=== PATIENT | female | born 1965 | race African-American/Black ===

== ENCOUNTER 2017-05-12 17:51 | Inpatient (IN) | payer MEDICAID, MEDICARE ==
[~2017-05-12] VITALS: Ht 165.1 cm; Wt 135.8 kg
[2017-05-12] MEDS ORDERED: LABE200T PO (19:01)
[2017-05-12] MEDS ORDERED: ASPI81TA31 PO (19:01)
[2017-05-12] MEDS ORDERED: ATOR40TA PO (19:01)
[2017-05-12] MEDS ORDERED: LISI-607 PO (19:01)
[2017-05-12] MEDS ORDERED: MOME13HF2 INH (19:01)
[2017-05-12] MEDS ORDERED: NICOTINE (19:01)
[2017-05-12] MEDS ORDERED: METH500T PO (19:01)
[2017-05-12] MEDS ORDERED: CLON0.2T PO (19:01)
[2017-05-12] MEDS ORDERED: ERGO500014 PO (19:01)
[2017-05-12] MEDS ORDERED: FURO40TA5 PO (19:01)
[2017-05-12] MEDS ORDERED: AMLO10TA2 PO (19:01)
--- NOTE | 2017-05-12 20:21 | NUR ---
AT BEDSIDE FOR MSE.
[2017-05-12 21:00] LABS: *BILIRUBIN,URIN NEGATIVE (NEGATIVE); *BLOOD, URINE 2+ (NEGATIVE); *CLARITY,URINE CLEAR (CLEAR); *COLOR,URINE YELLOW (YELLOW); *KETONES,URINE TRACE (NEGATIVE); *UROBILINOGEN,URINE 0.2 E.U./dl (NORMAL); LEUKOCYTE ESTERASE ,URINE NEGATIVE (NEGATIVE); NITRITE, URINE NEGATIVE (NEGATIVE); PH,URINE 5.5 (5.0-8.0); UGLUCOSE NEGATIVE (NEGATIVE)
[2017-05-12 21:03] LABS: *PROTEIN,URINE 3+ (NEGATIVE)
[2017-05-12 21:04] LABS: BASOPHILS # (AUTO) 0.4 K/uL (0.0-8.0); BASOPHILS % (AUTO) 3.6 % (0.0-2.0); EOSINOPHILS # (AUTO) 0.3 K/uL (0.0-0.7); EOSINOPHILS % (AUTO) 2.7 % (0.0-7.0); HEMATOCRIT 36.5 % (37-47); HEMOGLOBIN 12.3 G/DL (12.0-16.0); LYMPHOCYTES # (AUTO) 2.7 K/UL (0.8-4.8); LYMPHOCYTES % (AUTO) 23.8 % (20.5-51.5); MEAN CORPUSCULAR HEMOGLOBIN 30.1 UUG (27.0-31.0); MEAN CORPUSCULAR HGB CONC 34 g/dL (32.0-37.0); MEAN CORPUSCULAR VOLUME 89.6 FL (81.0-99.0); MONOCYTES # (AUTO) 0.8 K/UL (0.1-1.30); MONOCYTES % (AUTO) 6.7 % (0.0-11.0); NEUTROPHILS # (AUTO) 7.2 K/UL (1.8-8.9); NEUTROPHILS % (AUTO) 63.2 % (38.5-71.5); PLATELET COUNT (AUTO) 199 K/UL (150-450); RED BLOOD CELL COUNT(AUTO) 4.08 MIL/UL (4.2-5.4); WHITE BLOOD COUNT (AUTO) 11.4 K/UL (4.0-11.2)
[2017-05-12 21:06] LABS: BACTERIA,URINE MODERATE /HPF (NONE SEEN); SQUAMOUS EPITHELIAL CELL,UR MANY /HPF (NONE SEEN)
[2017-05-12 21:08] LABS: CARBON DIOXIDE 28 mmol/L (21-32); CHLORIDE 102 mmol/L (98-107); CREATININE 4.3 mg/dL (0.6-1.3); GLUCOSE 173 mg/dL (74-106); POTASSIUM 3.5 mmol/L (3.5-5.1); UREA NITROGEN, BLOOD 48 mg/dL (7-18)
[2017-05-12 21:15] LABS: ALANINE AMINOTRANSFERASE 24 U/L (14-59); ALKALINE PHOSPHATASE 151 U/L (50-136); ASPARTATE AMINOTRANSFERASE 14 U/L (15-37); BILIRUBIN,DIRECT < 0.1 mg/dL (0.0-0.2); BILIRUBIN,TOTAL 0.9 mg/dL (0.2-1.0); LIPASE 100 U/L (73-393); TOTAL PROTEIN, SERUM 7.7 g/dL (6.4-8.2)
--- NOTE | 2017-05-12 21:56 | NUR ---
[facility] CALLED AT THIS TIME.
[2017-05-12] MEDS ORDERED: ONDANSETRON 4 MG/2 ML VIAL IV PRN (23:15)
[2017-05-12] MEDS ORDERED: Z GUARD REMEDY PASTE 57 GM TUBE TOP PRN (23:15)
[2017-05-12] MEDS ORDERED: MAGNESIUM HYDROXIDE 30 ML LIQUID UDC PO PRN (23:15)
[2017-05-12] MEDS ORDERED: ZOLPIDEM 5 MG TABLET PO PRN (23:15)
--- NOTE | 2017-05-12 23:15 | NUR ---
RECEIVED PATIENT FROM ER VIA GURNEY. PATIENT IS ALERT, AMBULATORY, IN NO ACUTE DISTRESS. PT IS ADMITTED TO TELE UNDER THE CARE OF DR. EDEN. DX: RENAL FAILURE. BELONGING LIST DONE. NEW ADMISSION PROCESS AND CARE PLAN INITIATED. SAFETY MEASURES IN PLACE, CALL LIGHT WITHIN REACH, BED ALARM ON. WILL CALL MD FOR NEW ADMISSION ORDERS.
--- NOTE | 2017-05-12 23:30 | NUR ---
PT NOTED TO HAVE ELEVATED BP 214/122 HR 89. PT NO C/O OF HEADACHE, NAUSEA, VOMITING, CHEST PAIN OR SOB. PT STATED THAT HER BP IS "USUALLY RIGHT ABOUT THAT HIGH" AND "IT'S UNCONTROLLED". MD NOTIFIED AND MD ORDERS TAKEN BY TALENT DIRECTOR. Addendum: 05/13/17 at 0207 by TRISTIAN RUIZ RN ADD: PT IS ON TELE SR WITH OCCASIONAL PVCS
[2017-05-12] MEDS: hydrALAZINE HCL 25 MG TABLET PO SCH (23:57)
--- NOTE | 2017-05-13 | NUR ---
ADMINISTERED HYDRALAZINE 25MG ORDERED. WILL CONTINUE TO MONITOR.
[2017-05-13] MEDS ORDERED: hydrALAZINE HCL 25 MG TABLET ONE ×2 (00:06→05:35)
[2017-05-13] MEDS: IV 1/2NS 1000 ML 1,000 ML IV PRN (01:27)
--- NOTE | 2017-05-13 01:45 | NUR ---
PT'S BP STILL ELEVATED 195/130. NOTIFIED, REQUEST FOR PRN ORDER. PT IS ALERT, IN NO ACUTE DISTRESS, NO C/O OF CHEST PAIN/HEADACHE/SOB. WILL CONTINUE TO MONITOR. Addendum: 05/13/17 at 0207 by TRISTIAN RUIZ RN ADD: PT IS ON TELE SR WITH OCCASIONAL PVCS
[2017-05-13] MEDS ORDERED: LABETALOL HCL 100 MG TABLET PO ONE (02:19)
[2017-05-13] MEDS ORDERED: CLONIDINE HCL 0.2 MG TABLET PO PRN (02:30)
[2017-05-13 04:00] VITALS: BP 156/90
[2017-05-13] MEDS: ACETAMINOPHEN 325 MG TABLET PO PRN (04:12)
[2017-05-13] MEDS ORDERED: ACETAMINOPHEN 325 MG TABLET ONE (04:26)
[2017-05-13 05:25] LABS: BASOPHILS # (AUTO) 0.2 K/uL (0.0-8.0); EOSINOPHILS # (AUTO) 0.3 K/uL (0.0-0.7); HEMATOCRIT 35.2 % (37-47); HEMOGLOBIN 11.6 G/DL (12.0-16.0); LYMPHOCYTES # (AUTO) 2.1 K/UL (0.8-4.8); LYMPHOCYTES % (AUTO) 19.4 % (20.5-51.5); MEAN CORPUSCULAR HEMOGLOBIN 29.6 UUG (27.0-31.0); MEAN CORPUSCULAR HGB CONC 33 g/dL (32.0-37.0); MEAN CORPUSCULAR VOLUME 89.7 FL (81.0-99.0); MONOCYTES # (AUTO) 0.4 K/UL (0.1-1.30); NEUTROPHILS % (AUTO) 71.6 % (38.5-71.5); PLATELET COUNT (AUTO) 160 K/UL (150-450); RED BLOOD CELL COUNT(AUTO) 3.93 MIL/UL (4.2-5.4)
[2017-05-13] MEDS: hydrALAZINE HCL 25 MG TABLET PO SCH ×3 (05:26→17:52)
[2017-05-13 05:55] LABS: BILIRUBIN,TOTAL 0.3 mg/dL (0.2-1.0); CREATININE 4.5 mg/dL (0.6-1.3); MAGNESIUM 2.3 mg/dL (1.8-2.4); PHOSPHOROUS 5.1 mg/dL (2.5-4.9); POTASSIUM 3.5 mmol/L (3.5-5.1); TOTAL PROTEIN, SERUM 7.6 g/dL (6.4-8.2)
--- NOTE | 2017-05-13 06:35 | NUR ---
PT SLEPT INTERMITTENTLY, IN NO ACUTE DISTRESS. BP MONITORED AND ADMINISTERED MEDS ORDERED. IVF RUNNING/PATENT, NO INFILTRATION NOTED. SAFETY MEASURES IN PLACE, CALL LIGHT WITHIN REACH. WILL CONTINUE TO MONITOR.
--- NOTE | 2017-05-13 07:35 | NUR ---
Received patient on bed, A and O x 4. Discussed plan of care, pt. verbalized understanding. No distress noted. No complaints of pain at this time. Continue with telemetry, Sinus rhythm on monitor. Will continue to observe closely
[2017-05-13] MEDS: ASPIRIN 81 MG TAB.CHEW PO SCH (08:26)
[2017-05-13] MEDS: AMLODIPINE 10 MG TABLET PO SCH (08:27)
[2017-05-13] MEDS: CLONIDINE HCL 0.2 MG TABLET PO SCH ×2 (08:27→20:36)
[2017-05-13] MEDS: LABETALOL HCL 200 MG TABLET PO SCH ×3 (08:31→23:25)
[2017-05-13] MEDS ORDERED: INFLUENZA VACCINE 2017-2018 0.5 ML DISP.SYRIN IM ONE (09:00)
[2017-05-13 11:51] VITALS: BP 135/84
--- NOTE | 2017-05-13 12:00 | NUR ---
No acute change awaiting for revit drafter consult
--- NOTE | 2017-05-13 15:00 | NUR ---
Seen by tree loader meat, recommend permacath for out patient hd. Sinus rhythm on monitor.
[2017-05-13 15:56] VITALS: BP 126/83
[2017-05-13 20:24] VITALS: BP 169/102
--- NOTE | 2017-05-13 20:30 | NUR ---
TELEPHONE ORDER FROM DR. VILLANUEVA REGARDING PLAN FOR PT'S PERMACATH INSERTION TOMORROW MORNING. ORDERS TAKEN, READ BACK: NPO AFTER MIDNIGHT AND SIGNED CONSENT FOR PROCEDURE. MD'S ORDER CARRIED OUT. PATIENT INFORMED, PT VERBALIZED UNDERSTANDING.
[2017-05-13] MEDS: ATORVASTATIN 40 MG TABLET PO SCH (20:36)
[2017-05-13 22:15] VITALS: BP 162/98
[2017-05-14 00:54] VITALS: BP 146/95
[2017-05-14] MEDS: hydrALAZINE HCL 25 MG TABLET PO SCH ×4 (01:04→18:27)
--- NOTE | 2017-05-14 04:30 | NUR ---
PATIENT SIGNED CONSENT, CONSENT FORM PLACED IN CHART. PREOP CHECKLIST DONE.
[2017-05-14 05:03] VITALS: BP 145/100
[2017-05-14] MEDS: LABETALOL HCL 200 MG TABLET PO SCH ×3 (06:00→21:21)
[2017-05-14 06:56] LABS: BASOPHILS # (AUTO) 0.1 K/uL (0.0-8.0); BASOPHILS % (AUTO) 0.8 % (0.0-2.0); EOSINOPHILS # (AUTO) 0.3 K/uL (0.0-0.7); EOSINOPHILS % (AUTO) 3.9 % (0.0-7.0); HEMATOCRIT 32.2 % (31.2-41.9); HEMOGLOBIN 10.8 g/dL (10.9-14.3); LYMPHOCYTES # (AUTO) 2.2 K/uL (20.0-40.0); LYMPHOCYTES % (AUTO) 30.9 % (20.5-51.5); MEAN CORPUSCULAR HEMOGLOBIN 30.4 uug (24.7-32.8); MEAN CORPUSCULAR HGB CONC 34 g/dL (32.3-35.6); MEAN CORPUSCULAR VOLUME 90.9 fL (75.5-95.3); MONOCYTES # (AUTO) 0.7 K/uL (2.0-10.0); MONOCYTES % (AUTO) 9.5 % (0.0-11.0); NEUTROPHILS # (AUTO) 3.9 K/uL (1.8-8.9); NEUTROPHILS % (AUTO) 54.9 % (38.5-71.5); PLATELET COUNT (AUTO) 140 K/uL (179-408); RED BLOOD CELL COUNT(AUTO) 3.54 MIL/uL (3.63-4.92)
--- NOTE | 2017-05-14 07:30 | NUR ---
RECEIVED REPORT FROM THE GROOVER RUNNER, RECEIVED PT IN BED SLEEPING WITH NO SIGNS AND SYMPTOMS OF PAIN, SOB, DISTRESS OR DISCOMFORT. EASILY AROUSABLE TO NAME. SHE IS NPO DUE TO A PENDING PERMACATH INSERTION AT 1030.
[2017-05-14 07:44] LABS: BILIRUBIN,TOTAL 0.4 mg/dL (0.2-1.0); CREATININE 4.2 mg/dL (0.6-1.3); MAGNESIUM 2.2 mg/dL (1.8-2.4); PHOSPHOROUS 4.9 mg/dL (2.5-4.9); TOTAL PROTEIN, SERUM 6.9 g/dL (6.4-8.2)
[2017-05-14] MEDS: CLONIDINE HCL 0.2 MG TABLET PO SCH ×2 (08:33→20:55)
[2017-05-14] MEDS: AMLODIPINE 10 MG TABLET PO SCH (08:33)
[2017-05-14] MEDS: ASPIRIN 81 MG TAB.CHEW PO SCH (09:00)
[2017-05-14 10:05] VITALS: BP 149/81
[2017-05-14] MEDS ORDERED: LIDOCAINE HCL 1% 20 ML VIAL ONE (10:07)
[2017-05-14] MEDS ORDERED: HEPARIN SODIUM,PORCINE 10,000 UNITS/10 ML VIAL ONE (10:07)
[2017-05-14] MEDS ORDERED: HEPARIN/NS 500 ML ONE (10:08)
[2017-05-14] MEDS ORDERED: BUPIVACAINE 0.25% 30 ML VIAL ONE (10:08)
--- NOTE | 2017-05-14 10:40 | NUR ---
PT WAS TAKEN TO SURGERY BY TWO OR NURSES FOR A PERMACATH INSERTION. PT WAS NOTED AWAKE. ALERT AND ORIENTED TIMES 3 AND UNDER NO APPARENT PAIN, SOB, DISTRESS OR DISCOMFORT.
[2017-05-14 11:07] LABS: HEPATITIS A AB, TOTAL Positive (Negative); HEPATITIS B SURFACE AB Reactive (.); HEPATITIS B SURFACE AG Negative (Negative)
[2017-05-14] MEDS ORDERED: MIDAZOLAM HCL 2 MG/2 ML VIAL ONE (11:22)
[2017-05-14] MEDS ORDERED: FENTANYL CITRATE 100 MCG/2 ML AMPUL ONE (11:22)
--- NOTE | 2017-05-14 13:15 | NUR ---
PT ARRIVED BACK FROM A RIGHT SIDE PERMACATH INSERTION, PT IS STABLE WITH NO NOTICEABLE SIGNS AND SYMPTOMS OF SOB OR DISTRESS. V/S TAKEN TEMP. 98.5, BP 167/103, O2 AT 98% ROOM AIR, HR 71, RR18 AND PAIN 6/10 ON INSERTION SITE. PT STATED SHE WAS HUNGRY AND A RENAL DIET WAS PROVIDE FOR HER. BP MEDICATION AND PAIN MEDICATION GIVEN. PT IS COOPERATIVE WITH ALL CARE.
[2017-05-14] MEDS: HYDROCODONE/APAP 5-325MG TABLET PO PRN ×2 (13:44→18:26)
[2017-05-14] MEDS: IV 1/2NS 1000 ML 1,000 ML IV PRN (13:48)
[2017-05-14 16:49] VITALS: BP 134/86
--- NOTE | 2017-05-14 18:00 | NUR ---
PT STATED THAT AFTER REMOVAL OF PAPER TAPE ON HER LEFT ANTECUBITAL SHE FELT IT WAS HURTING AND NOTED SKIN REDNESS THEREAFTER. WILL MONITOR
[2017-05-14 20:32] VITALS: BP 153/96
[2017-05-14] MEDS: ATORVASTATIN 40 MG TABLET PO SCH (21:21)
[2017-05-14] MEDS: NICOTINE 14 MG/24HR PATCH TD SCH (21:24)
[2017-05-14] MEDS: MIRALAX 17 GM POWD.PACK PO SCH (21:24)
--- NOTE | 2017-05-14 22:05 | NUR ---
A/a/O times 4 pleasant and coopertive,no distress noted or voiced. chest HD in olace with small amount of bloody drainage..will medicate for comfort
[2017-05-15] MEDS: hydrALAZINE HCL 25 MG TABLET PO SCH ×5 (00:15→23:58)
[2017-05-15] MEDS: HYDROCODONE/APAP 5-325MG TABLET PO PRN ×2 (00:34→20:31)
[2017-05-15] MEDS: IV 1/2NS 1000 ML 1,000 ML IV PRN (04:12)
[2017-05-15 05:03] VITALS: BP 156/89
[2017-05-15] MEDS: LABETALOL HCL 200 MG TABLET PO SCH ×3 (05:45→21:33)
--- NOTE | 2017-05-15 06:24 | NUR ---
PATIENT IN STABLE CONDITION. NO S/S OF DISTRESS. SLEPT INTERMITTENTLY THROUGH THE NIGHT. COMFORT AND SAFETY PROVIDED.
--- NOTE | 2017-05-15 07:30 | NUR ---
Received patient on bed, A and O x 4. Discussed plan of care, pt. verbalized understanding. No distress noted. No complaints of pain at this time. call light with in reach
[2017-05-15] MEDS: NICOTINE 14 MG/24HR PATCH TD SCH (08:19)
[2017-05-15] MEDS: MIRALAX 17 GM POWD.PACK PO SCH (08:19)
[2017-05-15] MEDS: CLONIDINE HCL 0.2 MG TABLET PO SCH ×2 (08:20→20:24)
[2017-05-15] MEDS: AMLODIPINE 10 MG TABLET PO SCH (08:20)
[2017-05-15] MEDS: ASPIRIN 81 MG TAB.CHEW PO SCH (08:20)
[2017-05-15 11:45] VITALS: BP 149/83
--- NOTE | 2017-05-15 14:29 | NUR ---
DIALYSIS DONE 500 CC REMOVED
[2017-05-15 16:52] VITALS: BP 158/95
--- NOTE | 2017-05-15 19:30 | NUR ---
RECEIVED SHIFT REPORT FROM PREVIOUS SHIFT NURSE. PATIENT IN STABLE CONDITION, S/S OF DISTRESS. HAD DIALYSIS DONE TODAY. BED IN LOCKED/LOW POSITION. PATIENT ABLE TO AMBULATE TO RESTROOM WITHOUT ANY WEAKNESS NOTED. PATIENT IS SAFE. CALL LIGHT WITHIN REACH. SAFETY AND COMFORT WILL BE PROVIDED THROUGHOUT SHIFT.
[2017-05-15 20:14] VITALS: BP 162/90
[2017-05-15] MEDS: ATORVASTATIN 40 MG TABLET PO SCH (20:22)
[2017-05-16 04:00] VITALS: BP 146/80
[2017-05-16] MEDS: LABETALOL HCL 200 MG TABLET PO SCH ×3 (06:07→21:00)
[2017-05-16] MEDS: HYDROCODONE/APAP 5-325MG TABLET PO PRN ×3 (06:08→20:53)
[2017-05-16] MEDS: hydrALAZINE HCL 25 MG TABLET PO SCH ×4 (06:08→23:42)
--- NOTE | 2017-05-16 06:50 | NUR ---
PATIENT IN STABLE CONDITION, NO S/S OF DISTRESS, BLOOD PRESSURE BEING CONTROLLED. [facility]. PATIENT'S PAIN IS TOLERABLE, WHICH WAS VERBALIZED BY PATIENT. CALL LIGHT WITHIN REACH, SIDE RAILS UP WITH BED IN LOCKED POSITION.
[2017-05-16] MEDS ORDERED: CEFAZOLIN 1 G VIAL MC ONE (07:22)
[2017-05-16] MEDS ORDERED: PROPOFOL 200 MG/20 ML BOTTLE IV ONE (07:29)
[2017-05-16] MEDS ORDERED: LIDOCAINE HCL 1% 20 ML VIAL MC ONE (07:29)
[2017-05-16] MEDS: ASPIRIN 81 MG TAB.CHEW PO SCH (08:05)
[2017-05-16] MEDS: NICOTINE 14 MG/24HR PATCH TD SCH (08:05)
[2017-05-16] MEDS: CLONIDINE HCL 0.2 MG TABLET PO SCH ×2 (08:05→20:54)
[2017-05-16] MEDS: MIRALAX 17 GM POWD.PACK PO SCH (08:05)
[2017-05-16] MEDS: AMLODIPINE 10 MG TABLET PO SCH (08:05)
[2017-05-16 08:06] LABS: ALBUMIN 3.3 g/dL (2.9-4.4); ALPHA-1-GLOBULIN 0.2 g/dL (0.0-0.4); ALPHA-2-GLOBULIN 0.7 g/dL (0.4-1.0); BETA GLOBULIN 1.2 g/dL (0.7-1.3); GAMMA GLOBULIN 1.1 g/dL (0.4-1.8); GLOBULIN, TOTAL 3.2 g/dL (2.2-3.9); M-SPIKE Not Observed g/dL (Not Observed)
[2017-05-16 11:42] VITALS: BP 146/88
--- NOTE | 2017-05-16 12:00 | NUR ---
pt seen by surgical trapeze artist
[2017-05-16 15:12] VITALS: BP 148/93
--- NOTE | 2017-05-16 16:50 | NUR ---
dialysis done 2 litter fluids out.pt tolerated well
--- NOTE | 2017-05-16 19:30 | NUR ---
PT IN ROOM ALERT AWAKE IN NO ACUTE DISTRESS. BP NOTED 154/101. DENIES ANY HEADACHES OR DIZZINESS. PT REQUESTS FOR PAIN MEDICTION. ROUTHINE BP MEDICATION TO BE GIVEN. CALL LIGHT PLACED WITHIN REACH. CONTINUE TO MONITOR.
[2017-05-16 20:00] VITALS: BP 154/101
[2017-05-16] MEDS: ATORVASTATIN 40 MG TABLET PO SCH (20:53)
[2017-05-16] MEDS: ACETAMINOPHEN 325 MG TABLET PO PRN (23:47)
--- NOTE | 2017-05-17 01:13 | NUR ---
Pt asleep in no acute distress. continue to monitor. Call light placed withinr each.
--- NOTE | 2017-05-17 05:30 | NUR ---
Pt in room alert awake with no c/o any headache but states pain 5/10. No active bleeding or s/s of infection to piil cath site to chest. BP 158/93. Continue to monitor.
[2017-05-17] MEDS: LABETALOL HCL 200 MG TABLET PO SCH ×3 (05:38→23:07)
[2017-05-17] MEDS: HYDROCODONE/APAP 5-325MG TABLET PO PRN ×3 (05:41→20:49)
[2017-05-17] MEDS: hydrALAZINE HCL 25 MG TABLET PO SCH ×3 (06:01→18:01)
[2017-05-17 06:16] VITALS: BP 158/93
[2017-05-17] MEDS: ASPIRIN 81 MG TAB.CHEW PO SCH (09:25)
[2017-05-17] MEDS: CLONIDINE HCL 0.2 MG TABLET PO SCH ×2 (09:26→20:50)
[2017-05-17] MEDS: AMLODIPINE 10 MG TABLET PO SCH (09:26)
[2017-05-17] MEDS: NICOTINE 14 MG/24HR PATCH TD SCH (09:26)
[2017-05-17] MEDS: MIRALAX 17 GM POWD.PACK PO SCH (09:26)
[2017-05-17 11:41] VITALS: BP 137/87
[2017-05-17] MEDS ORDERED: LACTULOSE 20 G/30 ML LIQUID UDC PO PRN (12:45)
[2017-05-17 15:37] VITALS: BP 138/78
--- NOTE | 2017-05-17 19:30 | NUR ---
PATIENT ALERT ORIENTED, NO SOB NO CHEST PAIN, CONT ON PAIN MANAGEMENT, R UPPER CHEST PERMA CATH DRESSING INTACT, NO BLEEDING NOTED, KEPT COMFORTABLE. CALL LIGHT WITHIN REACH.
[2017-05-17 20:00] VITALS: BP 147/93
[2017-05-17] MEDS: ATORVASTATIN 40 MG TABLET PO SCH (20:49)
[2017-05-18] MEDS: hydrALAZINE HCL 25 MG TABLET PO SCH ×4 (01:01→18:23)
[2017-05-18] MEDS: HYDROCODONE/APAP 5-325MG TABLET PO PRN ×3 (03:36→22:22)
[2017-05-18 04:23] VITALS: BP_SYST 141; BP_DIAS 93; BP_DIAS 95
[2017-05-18] MEDS: LABETALOL HCL 200 MG TABLET PO SCH ×3 (05:20→22:22)
[2017-05-18 07:19] LABS: CREATININE 3.9 mg/dL (0.6-1.3); MAGNESIUM 2.3 mg/dL (1.8-2.4); PHOSPHOROUS 4.8 mg/dL (2.5-4.9); POTASSIUM 4.2 mmol/L (3.5-5.1)
[2017-05-18 07:28] LABS: BASOPHILS # (AUTO) 0.1 K/uL (0.0-8.0); BASOPHILS % (AUTO) 0.8 % (0.0-2.0); EOSINOPHILS # (AUTO) 0.2 K/uL (0.0-0.7); HEMATOCRIT 29.9 % (31.2-41.9); HEMOGLOBIN 9.7 g/dL (10.9-14.3); LYMPHOCYTES # (AUTO) 2.3 K/uL (20.0-40.0); LYMPHOCYTES % (AUTO) 28.3 % (20.5-51.5); MEAN CORPUSCULAR HEMOGLOBIN 29.6 uug (24.7-32.8); MEAN CORPUSCULAR HGB CONC 33 g/dL (32.3-35.6); MEAN CORPUSCULAR VOLUME 91.2 fL (75.5-95.3); MONOCYTES % (AUTO) 12.8 % (0.0-11.0); NEUTROPHILS # (AUTO) 4.4 K/uL (1.8-8.9); NEUTROPHILS % (AUTO) 55.1 % (38.5-71.5); PLATELET COUNT (AUTO) 159 K/uL (179-408); RED BLOOD CELL COUNT(AUTO) 3.28 MIL/uL (3.63-4.92)
[2017-05-18] MEDS ORDERED: ERGOCALCIFEROL 50,000 UNIT CAPSULE PO SCH (09:00)
[2017-05-18] MEDS: ASPIRIN 81 MG TAB.CHEW PO SCH (10:00)
[2017-05-18] MEDS: CLONIDINE HCL 0.2 MG TABLET PO SCH ×2 (10:00→20:34)
[2017-05-18] MEDS: NICOTINE 14 MG/24HR PATCH TD SCH (10:01)
[2017-05-18] MEDS: MIRALAX 17 GM POWD.PACK PO SCH (10:01)
[2017-05-18] MEDS: AMLODIPINE 10 MG TABLET PO SCH (10:01)
[2017-05-18 11:15] VITALS: BP 154/101
--- NOTE | 2017-05-18 12:00 | NUR ---
HAD DIALYSIS TODAY 2.9 LITERS REMOVED---JOCELYN. WELL
[2017-05-18 15:54] VITALS: BP 147/85
--- NOTE | 2017-05-18 19:45 | NUR ---
RECEIVED PATIENT IN BED, R UPPER CHEST PERMA CATH DRESSING INTACT, NO BLEEDING NOTED, CONT ON PAIN MANAGEMENT, CALL LIGHT WITHIN REACH.
[2017-05-18] MEDS: ATORVASTATIN 40 MG TABLET PO SCH (20:34)
[2017-05-18 21:30] VITALS: BP 162/73
[2017-05-19] MEDS: hydrALAZINE HCL 25 MG TABLET PO SCH ×4 (00:45→18:10)
[2017-05-19] MEDS: LABETALOL HCL 200 MG TABLET PO SCH ×3 (05:02→22:08)
[2017-05-19] MEDS: HYDROCODONE/APAP 5-325MG TABLET PO PRN ×3 (05:07→22:11)
--- NOTE | 2017-05-19 05:46 | NUR ---
PATIENT SLEPT MOST OF THE NIGHT, CONT ON PAIN MANAGEMENT, NO BLEEDING NOTED FROM PERMA CATH, CALL LIGHT WITHIN REACH.
[2017-05-19 06:02] VITALS: BP 139/80
[2017-05-19 06:44] LABS: BASOPHILS # (AUTO) 0.1 K/uL (0.0-8.0); BASOPHILS % (AUTO) 0.9 % (0.0-2.0); EOSINOPHILS # (AUTO) 0.3 K/uL (0.0-0.7); EOSINOPHILS % (AUTO) 3.5 % (0.0-7.0); HEMATOCRIT 31.5 % (37-47); HEMOGLOBIN 10.4 G/DL (12.0-16.0); LYMPHOCYTES % (AUTO) 26.7 % (20.5-51.5); MEAN CORPUSCULAR HEMOGLOBIN 29.8 UUG (27.0-31.0); MEAN CORPUSCULAR HGB CONC 33 g/dL (32.0-37.0); MEAN CORPUSCULAR VOLUME 90.2 FL (81.0-99.0); MONOCYTES # (AUTO) 0.7 K/UL (0.1-1.30); MONOCYTES % (AUTO) 8.8 % (0.0-11.0); NEUTROPHILS # (AUTO) 4.5 K/UL (1.8-8.9); NEUTROPHILS % (AUTO) 60.1 % (38.5-71.5); PLATELET COUNT (AUTO) 198 K/UL (150-450); WHITE BLOOD COUNT (AUTO) 7.6 K/UL (4.0-11.2)
[2017-05-19 06:46] LABS: CREATININE 4.1 mg/dL (0.6-1.3); MAGNESIUM 2.2 mg/dL (1.8-2.4); PHOSPHOROUS 5.2 mg/dL (2.5-4.9); POTASSIUM 4.2 mmol/L (3.5-5.1)
[2017-05-19] MEDS: ASPIRIN 81 MG TAB.CHEW PO SCH (08:08)
[2017-05-19] MEDS: NICOTINE 14 MG/24HR PATCH TD SCH (08:08)
[2017-05-19] MEDS: AMLODIPINE 10 MG TABLET PO SCH (08:08)
[2017-05-19] MEDS: MIRALAX 17 GM POWD.PACK PO SCH (08:08)
[2017-05-19] MEDS: CLONIDINE HCL 0.2 MG TABLET PO SCH ×2 (08:08→20:05)
[2017-05-19 12:22] VITALS: BP 114/68
[2017-05-19] MEDS ORDERED: INFLUENZA VACCINE 2017-2018 0.5 ML DISP.SYRIN IM ONE (12:30)
[2017-05-19 16:08] VITALS: BP 146/83
[2017-05-19 16:23] VITALS: BP 146/83
--- NOTE | 2017-05-19 19:15 | NUR ---
ALERT AWAKE, CONT ON PAIN MANAGEMENT, BP STABLE, CONT TO MONITOR.
[2017-05-19 20:00] VITALS: BP 145/83
[2017-05-19] MEDS: ATORVASTATIN 40 MG TABLET PO SCH (20:05)
[2017-05-20] MEDS: hydrALAZINE HCL 25 MG TABLET PO SCH ×4 (00:01→18:35)
--- NOTE | 2017-05-20 05:37 | NUR ---
PATIENT SLEPT MOST OF THE NIGHT, CONT ON PAIN MANAGEMENT, NO SOB NO CHEST PAIN, BP STABLE, CALL LIGHT WITHIN REACH.
[2017-05-20 05:43] VITALS: BP 154/90
[2017-05-20] MEDS: LABETALOL HCL 200 MG TABLET PO SCH ×3 (05:56→21:25)
[2017-05-20] MEDS: MIRALAX 17 GM POWD.PACK PO SCH (08:14)
[2017-05-20] MEDS: NICOTINE 14 MG/24HR PATCH TD SCH (08:14)
[2017-05-20] MEDS: CLONIDINE HCL 0.2 MG TABLET PO SCH ×2 (08:15→21:24)
[2017-05-20] MEDS: AMLODIPINE 10 MG TABLET PO SCH (08:15)
[2017-05-20] MEDS: ASPIRIN 81 MG TAB.CHEW PO SCH (08:15)
[2017-05-20 11:26] VITALS: BP 123/67
[2017-05-20] MEDS: HYDROCODONE/APAP 5-325MG TABLET PO PRN ×2 (15:15→23:22)
--- NOTE | 2017-05-20 15:25 | NUR ---
DIALYSIS DONE 2.4 LITTER OUT.
[2017-05-20 15:48] VITALS: BP 141/82
--- NOTE | 2017-05-20 19:30 | NUR ---
RECEIVED SHIFT REPORT FROM PREVIOUS SHIFT NURSE. PATIENT IS AOX4, STABLE CONDITION. NO S/S OF DISTRESS. BED IN LOCKED/LOW POSITION WITH SIDE RAILS UP X2. SAFETY AND COMFORT WILL BE PROVIDED THROUGHOUT SHIFT.
[2017-05-20 20:00] VITALS: BP 147/84
[2017-05-20] MEDS: ATORVASTATIN 40 MG TABLET PO SCH (21:23)
[2017-05-21] MEDS: hydrALAZINE HCL 25 MG TABLET PO SCH ×3 (00:27→13:45)
[2017-05-21 04:48] VITALS: BP 120/73
[2017-05-21] MEDS: LABETALOL HCL 200 MG TABLET PO SCH ×2 (06:02→13:45)
[2017-05-21] MEDS: ASPIRIN 81 MG TAB.CHEW PO SCH (09:02)
[2017-05-21] MEDS: AMLODIPINE 10 MG TABLET PO SCH (09:03)
[2017-05-21] MEDS: NICOTINE 14 MG/24HR PATCH TD SCH (09:03)
[2017-05-21] MEDS: MIRALAX 17 GM POWD.PACK PO SCH (09:04)
[2017-05-21] MEDS: CLONIDINE HCL 0.2 MG TABLET PO SCH (09:04)
[2017-05-21 11:19] VITALS: BP 135/77
--- NOTE | 2017-05-21 11:22 | NUR ---
PATIENT RECEIVING DIALYSIS YESTERDAY. PATIENT IN STABLE CONDITION. NO S/S OF DISTRESS. SAFETY AND COMFORT PROVIDED.
[2017-05-21] MEDS ORDERED: HYDR-3326 PO (14:49)
[2017-05-21] MEDS ORDERED: HYDR-4077 PO (14:49)
[2017-05-21] MEDS ORDERED: POLY17PO4 PO (14:49)
[2017-05-21 15:07] VITALS: BP 103/66
--- NOTE | 2017-05-21 16:28 | NUR ---
discharge noted, education provided to patient, pt verbalized understanding. all belongings accounted for and sent with patient. id band removed. pictures in cart. pt taken down via wheelchair and left on foot.
== END 2017-05-21 14:20 | disposition home or self-care (01) | DRG 194 ==
LOC: ER 17:52 → TELE 22:49 → MED 05-13 17:13
PROVIDERS: ADMIT Internal Medicine; ATTEND Internal Medicine
DX: I13.2 Hypertensive heart and chronic kidney disease with heart failure and with stage 5 chronic kidney disease, or end stage renal disease (principal); I21.A1 Myocardial infarction type 2; E43 Unspecified severe protein-calorie malnutrition; N18.5 Chronic kidney disease, stage 5; I50.33 Acute on chronic diastolic (congestive) heart failure; Z99.2 Dependence on renal dialysis; E66.01 Morbid (severe) obesity due to excess calories; Z71.3 Dietary counseling and surveillance; F17.210 Nicotine dependence, cigarettes, uncomplicated; Z84.1 Family history of disorders of kidney and ureter; J44.9 Chronic obstructive pulmonary disease, unspecified; G47.33 Obstructive sleep apnea (adult) (pediatric); D53.9 Nutritional anemia, unspecified; E78.5 Hyperlipidemia, unspecified; Z79.82 Long term (current) use of aspirin; Z79.899 Other long term (current) drug therapy; Z68.43 Body mass index [BMI] 50.0-59.9, adult; M51.36 Other intervertebral disc degeneration, lumbar region; M51.26 Other intervertebral disc displacement, lumbar region; K59.00 Constipation, unspecified; N39.0 Urinary tract infection, site not specified; E83.51 Hypocalcemia
CPT/HCPCS: 36415; 70030-TC; 71010; 83550; 83605; 83690; 83735; 83970; 84100; 84155; 84165; 84703; 85025; 85730; 86704; 86706; 86708; 86803; 87040; 87086; 87340; 90686; 90937; 93005; 93307; A4649; A4663; J0690; J1644; J2250; J3010; J3490

== ENCOUNTER 2017-06-19 20:49 | Inpatient (IN) | payer MEDICAID ==
[~2017-06-19] VITALS: Ht 165.1 cm; Wt 133.8 kg
[~2017-06-19 20:49] MED LIST: AMLO10TA2 PO; ASPI81TA31 PO; CLON0.2T PO; ERGO500014 PO; HYDR-3326 PO; HYDR-4077 PO; LABE200T PO; MOME13HF2 INH; NICOTINE; POLY17PO4 PO
[2017-06-19] MEDS ORDERED: IV NORMAL SALINE 500 ML BAG IV ONE (22:00)
[2017-06-19 22:18] LABS: BASOPHILS # (AUTO) 0.1 K/uL (0.0-8.0); BASOPHILS % (AUTO) 1.1 % (0.0-2.0); EOSINOPHILS # (AUTO) 0.2 K/uL (0.0-0.7); EOSINOPHILS % (AUTO) 3.1 % (0.0-7.0); HEMATOCRIT 29.8 % (31.2-41.9); HEMOGLOBIN 9.8 g/dL (10.9-14.3); LYMPHOCYTES # (AUTO) 1.8 K/uL (20.0-40.0); LYMPHOCYTES % (AUTO) 25.2 % (20.5-51.5); MEAN CORPUSCULAR HGB CONC 33 g/dL (32.3-35.6); MEAN CORPUSCULAR VOLUME 91.4 fL (75.5-95.3); MONOCYTES # (AUTO) 0.7 K/uL (2.0-10.0); MONOCYTES % (AUTO) 10.1 % (0.0-11.0); NEUTROPHILS # (AUTO) 4.3 K/uL (1.8-8.9); NEUTROPHILS % (AUTO) 60.5 % (38.5-71.5); PLATELET COUNT (AUTO) 244 K/uL (179-408); RED BLOOD CELL COUNT(AUTO) 3.26 MIL/uL (3.63-4.92); WHITE BLOOD COUNT (AUTO) 7.2 K/uL (3.8-11.8)
[2017-06-19 22:20] LABS: CREATININE 5.3 mg/dL (0.6-1.3); POTASSIUM 4.2 mmol/L (3.5-5.1)
[2017-06-19 22:25] LABS: BILIRUBIN,DIRECT 0.1 mg/dL (0.0-0.2); BILIRUBIN,TOTAL 0.4 mg/dL (0.2-1.0); TOTAL PROTEIN, SERUM 7.4 g/dL (6.4-8.2)
[2017-06-20 00:16] VITALS: BP 156/72
[2017-06-20] MEDS ORDERED: HYDROCODONE/APAP 5-325MG TABLET PO PRN (00:45)
[2017-06-20] MEDS ORDERED: ONDANSETRON 4 MG/2 ML VIAL IV PRN (00:45)
[2017-06-20] MEDS ORDERED: MORPHINE SULFATE 2 MG/1 ML DISP.SYRIN IV PRN (00:45)
[2017-06-20] MEDS ORDERED: ACETAMINOPHEN 325 MG TABLET PO PRN (00:45)
[2017-06-20] MEDS ORDERED: hydrALAZINE HCL 50 MG TABLET ONE (04:47)
[2017-06-20 04:51] VITALS: BP 160/82
[2017-06-20] MEDS: hydrALAZINE HCL 50 MG TABLET PO SCH ×3 (05:16→21:34)
[2017-06-20] MEDS: MIRALAX 17 GM POWD.PACK PO SCH (09:00)
[2017-06-20] MEDS: ASPIRIN 81 MG TAB.CHEW PO SCH (09:00)
[2017-06-20] MEDS: LABETALOL HCL 200 MG TABLET PO SCH ×3 (09:00→21:33)
[2017-06-20] MEDS ORDERED: CLONIDINE HCL 0.2 MG TABLET PO SCH (09:00)
[2017-06-20] MEDS: AMLODIPINE 10 MG TABLET PO SCH (09:00)
[2017-06-20 10:33] LABS: BASOPHILS # (AUTO) 0.1 K/uL (0.0-8.0); EOSINOPHILS # (AUTO) 0.3 K/uL (0.0-0.7); EOSINOPHILS % (AUTO) 3.2 % (0.0-7.0); HEMATOCRIT 30.1 % (31.2-41.9); HEMOGLOBIN 9.7 g/dL (10.9-14.3); LYMPHOCYTES # (AUTO) 1.7 K/uL (20.0-40.0); LYMPHOCYTES % (AUTO) 21.1 % (20.5-51.5); MEAN CORPUSCULAR HEMOGLOBIN 29.5 uug (24.7-32.8); MEAN CORPUSCULAR HGB CONC 32 g/dL (32.3-35.6); MEAN CORPUSCULAR VOLUME 91.7 fL (75.5-95.3); MONOCYTES # (AUTO) 0.6 K/uL (2.0-10.0); MONOCYTES % (AUTO) 7.3 % (0.0-11.0); NEUTROPHILS # (AUTO) 5.3 K/uL (1.8-8.9); NEUTROPHILS % (AUTO) 67.4 % (38.5-71.5); PLATELET COUNT (AUTO) 231 K/uL (179-408); RED BLOOD CELL COUNT(AUTO) 3.28 MIL/uL (3.63-4.92); WHITE BLOOD COUNT (AUTO) 7.9 K/uL (3.8-11.8)
[2017-06-20 10:42] LABS: BILIRUBIN,TOTAL 0.3 mg/dL (0.2-1.0); CREATININE 5.1 mg/dL (0.6-1.3); MAGNESIUM 2.2 mg/dL (1.8-2.4); PHOSPHOROUS 4.7 mg/dL (2.5-4.9); POTASSIUM 4.3 mmol/L (3.5-5.1); TOTAL PROTEIN, SERUM 7.4 g/dL (6.4-8.2)
[2017-06-20 10:51] LABS: THYROID STIMULATING HORMONE 2.11 mIU/mL (0.358-3.740)
[2017-06-20 10:57] VITALS: BP 165/96
[2017-06-20] MEDS: CLONIDINE HCL 0.2 MG TABLET PO SCH ×2 (14:00→21:35)
[2017-06-20 15:04] VITALS: BP 140/97
[2017-06-20] MEDS ORDERED: ALTEPLASE 2 MG VIAL XX ONE ×2 (18:45)
[2017-06-20 19:00] VITALS: BP 185/113
[2017-06-20 20:19] LABS: *BILIRUBIN,URIN NEGATIVE (NEGATIVE); *BLOOD, URINE NEGATIVE (NEGATIVE); *COLOR,URINE YELLOW (YELLOW); *KETONES,URINE NEGATIVE (NEGATIVE); *UROBILINOGEN,URINE 0.2 E.U./dl (NORMAL); LEUKOCYTE ESTERASE ,URINE NEGATIVE (NEGATIVE); NITRITE, URINE NEGATIVE (NEGATIVE); PH,URINE 5.5 (5.0-8.0); UGLUCOSE NEGATIVE (NEGATIVE)
[2017-06-20 21:22] LABS: *CLARITY,URINE HAZY (CLEAR); *PROTEIN,URINE 3+ (NEGATIVE)
[2017-06-20 21:24] LABS: BACTERIA,URINE MODERATE /HPF (NONE SEEN); RBC,URINE 0-3 /HPF (0-3); SQUAMOUS EPITHELIAL CELL,UR MODERATE /HPF (NONE SEEN)
[2017-06-20 21:25] LABS: MUCUS,URINE FEW /LPF (0-FEW)
[2017-06-21 04:00] VITALS: BP 147/81
[2017-06-21] MEDS: CLONIDINE HCL 0.2 MG TABLET PO SCH ×3 (06:11→21:04)
[2017-06-21] MEDS: PANTOPRAZOLE SODIUM 40 MG TABLET.DR PO SCH (06:11)
[2017-06-21] MEDS: hydrALAZINE HCL 50 MG TABLET PO SCH ×3 (06:12→21:03)
[2017-06-21 06:30] LABS: BASOPHILS # (AUTO) 0.1 K/uL (0.0-8.0); BASOPHILS % (AUTO) 0.8 % (0.0-2.0); EOSINOPHILS # (AUTO) 0.2 K/uL (0.0-0.7); HEMATOCRIT 30.8 % (31.2-41.9); LYMPHOCYTES # (AUTO) 1.5 K/uL (20.0-40.0); LYMPHOCYTES % (AUTO) 18.3 % (20.5-51.5); MEAN CORPUSCULAR HEMOGLOBIN 29.5 uug (24.7-32.8); MEAN CORPUSCULAR HGB CONC 32 g/dL (32.3-35.6); MEAN CORPUSCULAR VOLUME 91.3 fL (75.5-95.3); MONOCYTES # (AUTO) 0.7 K/uL (2.0-10.0); MONOCYTES % (AUTO) 8.9 % (0.0-11.0); NEUTROPHILS # (AUTO) 5.6 K/uL (1.8-8.9); PLATELET COUNT (AUTO) 225 K/uL (179-408); RED BLOOD CELL COUNT(AUTO) 3.37 MIL/uL (3.63-4.92); WHITE BLOOD COUNT (AUTO) 8.1 K/uL (3.8-11.8)
[2017-06-21 06:48] LABS: BILIRUBIN,TOTAL 0.4 mg/dL (0.2-1.0); CREATININE 4.5 mg/dL (0.6-1.3); MAGNESIUM 2.2 mg/dL (1.8-2.4); POTASSIUM 4.2 mmol/L (3.5-5.1); TOTAL PROTEIN, SERUM 7.6 g/dL (6.4-8.2)
[2017-06-21] MEDS: MIRALAX 17 GM POWD.PACK PO SCH ×2 (09:00→11:34)
[2017-06-21] MEDS: NICOTINE 21 MG/24HR PATCH TD SCH (11:34)
[2017-06-21] MEDS: ASPIRIN 81 MG TAB.CHEW PO SCH (11:34)
[2017-06-21] MEDS: AMLODIPINE 10 MG TABLET PO SCH (12:10)
[2017-06-21 12:16] VITALS: BP 180/100
[2017-06-21] MEDS: CEFTRIAXONE 1 G in IV DEXTROSE 5% 50 ML IV SCH (12:24)
[2017-06-21] MEDS: LABETALOL HCL 200 MG TABLET PO SCH ×3 (14:00→21:04)
[2017-06-21 15:20] VITALS: BP 179/103
[2017-06-21 19:00] VITALS: BP 161/93
[2017-06-22 04:00] VITALS: BP 150/98
[2017-06-22] MEDS: CLONIDINE HCL 0.2 MG TABLET PO SCH ×2 (05:21→13:36)
[2017-06-22] MEDS: hydrALAZINE HCL 50 MG TABLET PO SCH ×2 (05:24→13:36)
[2017-06-22] MEDS: LABETALOL HCL 200 MG TABLET PO SCH ×2 (05:24→13:35)
[2017-06-22] MEDS: PANTOPRAZOLE SODIUM 40 MG TABLET.DR PO SCH (06:11)
[2017-06-22 07:12] LABS: BILIRUBIN,TOTAL 0.5 mg/dL (0.2-1.0); CREATININE 4.1 mg/dL (0.6-1.3); MAGNESIUM 2.1 mg/dL (1.8-2.4); PHOSPHOROUS 4.8 mg/dL (2.5-4.9); POTASSIUM 3.7 mmol/L (3.5-5.1); TOTAL PROTEIN, SERUM 7.7 g/dL (6.4-8.2)
[2017-06-22 07:18] LABS: BASOPHILS # (AUTO) 0.1 K/uL (0.0-8.0); BASOPHILS % (AUTO) 0.9 % (0.0-2.0); EOSINOPHILS # (AUTO) 0.3 K/uL (0.0-0.7); EOSINOPHILS % (AUTO) 4.1 % (0.0-7.0); HEMATOCRIT 31.3 % (31.2-41.9); LYMPHOCYTES # (AUTO) 1.8 K/uL (20.0-40.0); LYMPHOCYTES % (AUTO) 28.2 % (20.5-51.5); MEAN CORPUSCULAR HEMOGLOBIN 29.1 uug (24.7-32.8); MEAN CORPUSCULAR HGB CONC 32 g/dL (32.3-35.6); MEAN CORPUSCULAR VOLUME 91.1 fL (75.5-95.3); MONOCYTES # (AUTO) 0.8 K/uL (2.0-10.0); MONOCYTES % (AUTO) 12.2 % (0.0-11.0); NEUTROPHILS # (AUTO) 3.6 K/uL (1.8-8.9); NEUTROPHILS % (AUTO) 54.6 % (38.5-71.5); PLATELET COUNT (AUTO) 216 K/uL (179-408); RED BLOOD CELL COUNT(AUTO) 3.44 MIL/uL (3.63-4.92); WHITE BLOOD COUNT (AUTO) 6.5 K/uL (3.8-11.8)
[2017-06-22] MEDS: MIRALAX 17 GM POWD.PACK PO SCH (08:25)
[2017-06-22] MEDS: NICOTINE 21 MG/24HR PATCH TD SCH (08:25)
[2017-06-22] MEDS: CEFTRIAXONE 1 G in IV DEXTROSE 5% 50 ML IV SCH (08:25)
[2017-06-22] MEDS: AMLODIPINE 10 MG TABLET PO SCH (08:26)
[2017-06-22] MEDS: ASPIRIN 81 MG TAB.CHEW PO SCH (08:26)
[2017-06-22] MEDS ORDERED: ERGOCALCIFEROL 50,000 UNIT CAPSULE PO SCH (09:08)
[2017-06-22 11:49] VITALS: BP 148/86
[2017-06-22 16:30] VITALS: BP 136/82
== END 2017-06-22 16:45 | DRG 466 ==
LOC: ER 20:50 → TELE 23:42 → MED 06-20 13:29
PROVIDERS: ADMIT Internal Medicine; ATTEND Internal Medicine
PROC: 3C1ZX8Z Irrigation of Indwelling Device using Irrigating Substance, External Approach (ICD-10-PCS; principal; 2017-06-20)
PROC: 5A1D70Z Performance of Urinary Filtration, Intermittent, Less than 6 Hours Per Day (ICD-10-PCS; 2017-06-21)
DX: T82.49XA Other complication of vascular dialysis catheter, initial encounter (principal); N18.6 End stage renal disease; I13.2 Hypertensive heart and chronic kidney disease with heart failure and with stage 5 chronic kidney disease, or end stage renal disease; E44.0 Moderate protein-calorie malnutrition; Z68.42 Body mass index [BMI] 45.0-49.9, adult; I50.32 Chronic diastolic (congestive) heart failure; F17.210 Nicotine dependence, cigarettes, uncomplicated; Z99.2 Dependence on renal dialysis; Z84.1 Family history of disorders of kidney and ureter; Z83.3 Family history of diabetes mellitus; Z82.49 Family history of ischemic heart disease and other diseases of the circulatory system; E66.01 Morbid (severe) obesity due to excess calories; Z71.3 Dietary counseling and surveillance; Z91.14 Patient's other noncompliance with medication regimen; Z79.82 Long term (current) use of aspirin; Z79.899 Other long term (current) drug therapy; E83.9 Disorder of mineral metabolism, unspecified; J44.9 Chronic obstructive pulmonary disease, unspecified; E78.00 Pure hypercholesterolemia, unspecified; D64.9 Anemia, unspecified; N39.0 Urinary tract infection, site not specified
CPT/HCPCS: 36415; 71010; 83690; 83735; 84100; 84443; 85025; 87086; 90937; 93005; A4663; J0696; J2997; J7040; J7050; J7060

== ENCOUNTER 2017-06-24 20:24 | Inpatient (IN) | END 2017-06-27 17:10 | disposition BOARD | DRG 182 | DX: T82.41XA Breakdown (mechanical) of vascular dialysis catheter, initial encounter (principal); I13.2 Hypertensive heart and chronic kidney disease with heart failure and with stage 5 chronic kidney disease, or end stage renal disease; N18.6 End stage renal disease; E87.0 Hyperosmolality and hypernatremia; E44.0 Moderate protein-calorie malnutrition; I36.1 Nonrheumatic tricuspid (valve) insufficiency; Z68.42 Body mass index [BMI] 45.0-49.9, adult; I50.32 Chronic diastolic (congestive) heart failure; D63.8 Anemia in other chronic diseases classified elsewhere; E66.01 Morbid (severe) obesity due to excess calories; E83.39 Other disorders of phosphorus metabolism; E83.51 Hypocalcemia; F17.210 Nicotine dependence, cigarettes, uncomplicated; J44.9 Chronic obstructive pulmonary disease, unspecified; Z91.14 Patient's other noncompliance with medication regimen; Z99.2 Dependence on renal dialysis; R73.9 Hyperglycemia, unspecified; I25.2 Old myocardial infarction; J45.909 Unspecified asthma, uncomplicated; I34.0 Nonrheumatic mitral (valve) insufficiency; Y84.9 Medical procedure, unspecified as the cause of abnormal reaction of the patient, or of later complication, without mention of misadventure at the time of the procedure; Y92.009 Unspecified place in unspecified non-institutional (private) residence as the place of occurrence of the external cause; G47.33 Obstructive sleep apnea (adult) (pediatric); Y71.2 Prosthetic and other implants, materials and accessory cardiovascular devices associated with adverse incidents ==